=== PATIENT | male | born 1960 | race Caucasian/White ===

== ENCOUNTER 2016-11-29 21:09 | Emergency (ER) | payer OTHER ==
[~2016-11-29] VITALS: Ht 170.2 cm; Wt 81.6 kg
[~2016-11-29 21:09] MED LIST: ACET500C4 PO; LORA10TA7 PO; OMEP20TA20 PO
[2016-11-29] MEDS ORDERED: MAG HYDROX/AL HYDROX/SIMETH 30 ML LIQUID UDC PO ONE (21:45)
[2016-11-29] MEDS ORDERED: DICYCLOMINE HCL 10 MG/5 ML UDC LIQ PO ONE (21:45)
[2016-11-29] MEDS ORDERED: IV NORMAL SALINE 1000 ML BAG IV ONE (21:45)
[2016-11-29] MEDS ORDERED: NITROGLYCERIN 0.4 MG/TAB BOTTLE SL ONE ×2 (21:45→22:01)
[2016-11-29] MEDS ORDERED: PANTOPRAZOLE SODIUM 40 MG VIAL IV ONE (21:45)
[2016-11-29] MEDS ORDERED: LIDOCAINE VISCUS 2% 15 ML UDC MM ONE (21:45)
[2016-11-29] MEDS ORDERED: METOCLOPRAMIDE HCL 10 MG/2 ML VIAL IV ONE (21:45)
[2016-11-29] MEDS ORDERED: HYDROMORPHONE 1 MG/1 ML DISP.SYRIN IV ONE (21:45)
[2016-11-29 21:58] LABS: BASOPHILS # (AUTO) 0.1 K/uL (0.0-8.0); BASOPHILS % (AUTO) 0.6 % (0.0-2.0); EOSINOPHILS # (AUTO) 0.1 K/uL (0.0-0.7); EOSINOPHILS % (AUTO) 0.5 % (0.0-7.0); HEMATOCRIT 46.7 % (40-50); HEMOGLOBIN 15.5 G/DL (14.0-18.0); LYMPHOCYTES # (AUTO) 1.4 K/UL (0.8-4.8); LYMPHOCYTES % (AUTO) 12.8 % (20.5-51.5); MEAN CORPUSCULAR HEMOGLOBIN 28.9 UUG (27.0-31.0); MEAN CORPUSCULAR HGB CONC 33 g/dL (32.0-37.0); MEAN CORPUSCULAR VOLUME 86.8 FL (82.0-92.0); MONOCYTES # (AUTO) 0.4 K/UL (0.1-1.30); MONOCYTES % (AUTO) 3.6 % (0.0-11.0); NEUTROPHILS # (AUTO) 9.2 K/UL (1.8-8.9); NEUTROPHILS % (AUTO) 82.5 % (38.5-71.5); PLATELET COUNT (AUTO) 254 K/UL (150-450); RED BLOOD CELL COUNT(AUTO) 5.38 MIL/UL (4.7-6.1); WHITE BLOOD COUNT (AUTO) 11.2 K/UL (4.0-11.2)
[2016-11-29] MEDS ORDERED: METOCLOPRAMIDE HCL 10 MG/2 ML VIAL ONE (21:59)
[2016-11-29] MEDS ORDERED: PANTOPRAZOLE SODIUM 40 MG VIAL ONE (22:00)
[2016-11-29] MEDS ORDERED: HYDROMORPHONE 1 MG/1 ML DISP.SYRIN ONE (22:00)
[2016-11-29] MEDS ORDERED: MAG HYDROX/AL HYDROX/SIMETH 30 ML LIQUID UDC ONE (22:00)
[2016-11-29] MEDS ORDERED: DICYCLOMINE HCL 10 MG/5 ML UDC LIQ ONE (22:01)
[2016-11-29 22:02] LABS: POTASSIUM 3.4 mmol/L (3.5-5.1)
[2016-11-29] MEDS ORDERED: LIDOCAINE VISCUS 2% 15 ML UDC ONE (22:02)
[2016-11-29 22:08] LABS: BILIRUBIN,DIRECT 0.2 mg/dL (0.0-0.2); BILIRUBIN,TOTAL 1.3 mg/dL (0.2-1.0); TOTAL PROTEIN, SERUM 8.8 g/dL (6.4-8.2)
[2016-11-29 23:44] VITALS: BP 128/75
== END 2016-11-29 23:45 | disposition home or self-care (01) ==
LOC: ER 21:12
DX: K22.4 Dyskinesia of esophagus (principal); R10.13 Epigastric pain; K21.9 Gastro-esophageal reflux disease without esophagitis; F10.20 Alcohol dependence, uncomplicated
CPT/HCPCS: 36415; 71010; 74176; 76705; 80048; 80076; 83690; 85025; 85730; 93005; 96361; 96374; 96375; 99285; A4663; C9113; J1170; J2765; J7030

== ENCOUNTER 2018-11-19 16:06 | Emergency (ER) | payer MEDICAID, OTHER ==
[~2018-11-19] VITALS: Ht 170.2 cm; Wt 59.4 kg
[2018-11-19] MEDS ORDERED: MORPHINE SULFATE 2 MG/1 ML DISP.SYRIN IV ONE (16:30)
[2018-11-19] MEDS ORDERED: ONDANSETRON 4 MG/2 ML VIAL IV ONE (16:30)
[2018-11-19] MEDS ORDERED: IV NORMAL SALINE 1000 ML BAG IV ONE (16:30)
[2018-11-19 16:59] LABS: BASOPHILS % (AUTO) 1.1 % (0.0-2.0); EOSINOPHILS % (AUTO) 1.2 % (0.0-7.0); HEMATOCRIT 27.9 % (36.7-47.1); HEMOGLOBIN 9.2 g/dL (12.5-16.3); LYMPHOCYTES # (AUTO) 0.3 K/uL (20.0-40.0); LYMPHOCYTES % (AUTO) 34.2 % (20.5-51.5); MEAN CORPUSCULAR HEMOGLOBIN 27.1 uug (23.8-33.4); MEAN CORPUSCULAR HGB CONC 33 g/dL (32.5-36.3); MEAN CORPUSCULAR VOLUME 82.1 fL (73.0-96.2); MONOCYTES # (AUTO) 0.4 K/uL (2.0-10.0); MONOCYTES % (AUTO) 42.8 % (0.0-11.0); NEUTROPHILS # (AUTO) 0.2 K/uL (1.8-8.9); NEUTROPHILS % (AUTO) 20.7 % (38.5-71.5); PLATELET COUNT (AUTO) 149 K/uL (152-348); RED BLOOD CELL COUNT(AUTO) 3.39 MIL/uL (4.06-5.63)
[2018-11-19] MEDS ORDERED: ONDANSETRON 4 MG/2 ML VIAL ONE (16:59)
[2018-11-19] MEDS ORDERED: MORPHINE SULFATE 4 MG/1 ML DISP.SYRIN ONE (16:59)
[2018-11-19] MEDS ORDERED: PANT40TA2 PO (17:00)
[2018-11-19 17:07] LABS: CREATININE 1.3 mg/dL (0.6-1.3); POTASSIUM 5.2 mmol/L (3.5-5.1)
[2018-11-19 17:08] LABS: WHITE BLOOD COUNT (AUTO) 0.9 K/uL (3.6-10.2)
[2018-11-19 17:12] LABS: BILIRUBIN,DIRECT 0.6 mg/dL (0.0-0.2); TOTAL PROTEIN, SERUM 8.5 g/dL (6.4-8.2)
[2018-11-19 17:36] LABS: BAND % (MANUAL) 11 % (0-10); EOSINOPHILS % (MANUAL) 1 % (0-8); METAMYELOCYTES % 1 % (0-1); MONOCYTES % (MANUAL) 36 % (2-10); NEUTROPHILS % (MANUAL) 8 % (42-75)
[2018-11-19 17:38] LABS: LYMPHOCYTES % (MANUAL) 43 % (20-40)
[2018-11-19] MEDS ORDERED: FAMOTIDINE. 20 MG/2 ML VIAL IV ONE ×2 (18:30→18:35)
--- NOTE | 2018-11-19 18:52 | NUR ---
Patient discharged to home in stable conditon. Written and verbal after care instructions given. Patient verbalizes understanding of instructions and follow up. all belongings with patient, ambulatory. denies pain. not in any form of distress.
[2018-11-19 18:53] VITALS: BP 128/75
== END 2018-11-19 18:55 | disposition home or self-care (01) ==
LOC: ER 16:08
DX: R10.13 Epigastric pain (principal); R11.2 Nausea with vomiting, unspecified; K21.9 Gastro-esophageal reflux disease without esophagitis; Z79.899 Other long term (current) drug therapy
CPT/HCPCS: 36415; 74176; 80048; 80076; 83690; 85025; 96361; 96374; 96375; 99284; J2270; J2405; J3490; A4663

== ENCOUNTER 2018-11-28 18:25 | Emergency (ER) | payer MEDICAID ==
[~2018-11-28] VITALS: Ht 170.2 cm; Wt 63.5 kg
[~2018-11-28 18:25] MED LIST changes: +PANT40TA2 PO
[2018-11-28] MEDS ORDERED: ONDANSETRON 4 MG/2 ML VIAL IV ONE (19:00)
[2018-11-28] MEDS ORDERED: PANTOPRAZOLE SODIUM 40 MG VIAL IV ONE (19:00)
[2018-11-28] MEDS ORDERED: IV NORMAL SALINE 1000 ML BAG IV ONE (19:00)
[2018-11-28 19:17] LABS: BASOPHILS % (AUTO) 0.2 % (0.0-2.0); EOSINOPHILS % (AUTO) 0.1 % (0.0-7.0); HEMATOCRIT 26.9 % (36.7-47.1); HEMOGLOBIN 9.2 g/dL (12.5-16.3); LYMPHOCYTES # (AUTO) 1.7 K/uL (20.0-40.0); LYMPHOCYTES % (AUTO) 15.5 % (20.5-51.5); MEAN CORPUSCULAR HGB CONC 34 g/dL (32.5-36.3); MEAN CORPUSCULAR VOLUME 81.9 fL (73.0-96.2); MONOCYTES # (AUTO) 1.3 K/uL (2.0-10.0); MONOCYTES % (AUTO) 12.2 % (0.0-11.0); NEUTROPHILS # (AUTO) 7.9 K/uL (1.8-8.9); PLATELET COUNT (AUTO) 558 K/uL (152-348); RED BLOOD CELL COUNT(AUTO) 3.29 MIL/uL (4.06-5.63)
[2018-11-28 19:22] LABS: CREATININE 1.3 mg/dL (0.6-1.3); POTASSIUM 3.8 mmol/L (3.5-5.1)
[2018-11-28 19:29] LABS: BILIRUBIN,DIRECT 0.3 mg/dL (0.0-0.2); BILIRUBIN,TOTAL 0.6 mg/dL (0.2-1.0); TOTAL PROTEIN, SERUM 8.2 g/dL (6.4-8.2)
[2018-11-28] MEDS ORDERED: MORPHINE SULFATE 4 MG/1 ML DISP.SYRIN IV ONE (19:30)
--- NOTE | 2018-11-28 19:45 | NUR ---
found pt in bed stated he came in for n/v can't eat chronic back pain takes norco pt stated he has cancer overall generalized weakness and frail at his side stated this is normal for him comfort and safety maintained
[2018-11-28] MEDS ORDERED: MORPHINE SULFATE 4 MG/1 ML DISP.SYRIN ONE (19:46)
[2018-11-28] MEDS ORDERED: ONDANSETRON 4 MG/2 ML VIAL ONE (19:46)
[2018-11-28] MEDS ORDERED: PANTOPRAZOLE SODIUM 40 MG VIAL ONE (19:46)
[2018-11-28] MEDS ORDERED: HYDROMORPHONE 1 MG/1 ML DISP.SYRIN IV ONE (20:00)
[2018-11-28] MEDS ORDERED: HYDROMORPHONE 1 MG/1 ML DISP.SYRIN ONE (20:09)
[2018-11-28 20:14] LABS: BAND % (MANUAL) 4 % (0-10); LYMPHOCYTES % (MANUAL) 13 % (20-40); MONOCYTES % (MANUAL) 10 % (2-10); NEUTROPHILS % (MANUAL) 68 % (42-75)
[2018-11-28 20:15] LABS: METAMYELOCYTES % 4 % (0-1); MYELOCYTES % 1 % (0-0)
--- NOTE | 2018-11-28 20:15 | NUR ---
pt wwas medicated with zofran, protonix , morphine and normal saline denies allergies med teaching given comfort and safety maintained with some effect
--- NOTE | 2018-11-28 20:25 | NUR ---
was med time one with dilaudid for pain denies allergy med teaching given with good effect
--- NOTE | 2018-11-28 20:40 | NUR ---
pt was discharge to home with his hl removed site wnl discharge teaching and prescription teaching given also pt denies pain/discomfort at this time , enc pt not to drive hime
[2018-11-28 21:03] VITALS: BP 137/76
== END 2018-11-28 20:45 | disposition home or self-care (01) ==
LOC: ER 18:25
DX: D01.7 Carcinoma in situ of other specified digestive organs (principal); D64.9 Anemia, unspecified; Z79.899 Other long term (current) drug therapy
CPT/HCPCS: 36415; 80048; 80076; 83690; 84484; 85025; 93005; 96374; 96375; 99284; C9113; J1170; J2270; J2405; 70030-TC; A4663; J7030

== ENCOUNTER 2018-12-06 20:24 | Emergency (ER) | payer MEDICAID ==
[~2018-12-06] VITALS: Ht 170.2 cm; Wt 61.2 kg
[2018-12-06] MEDS ORDERED: [UNRECOGNIZED DRUG - OTHER] (20:45)
[2018-12-06] MEDS ORDERED: LIDOCAINE 2% (20:45)
[2018-12-06] MEDS ORDERED: [UNRECOGNIZED DRUG - OTHER] (20:45)
--- NOTE | 2018-12-06 21:02 | NUR ---
Patient states nausea is gone. Requesting for more pain medication for abdominal pain raditing to back 11/09.
[2018-12-06] MEDS ORDERED: ONDANSETRON 4 MG/2 ML VIAL ONE (21:28)
[2018-12-06] MEDS ORDERED: HYDROMORPHONE 1 MG/1 ML DISP.SYRIN ONE ×2 (21:28→22:11)
[2018-12-06] MEDS ORDERED: ONDANSETRON 4 MG/2 ML VIAL IV ONE (21:30)
[2018-12-06] MEDS ORDERED: IV NORMAL SALINE 1000 ML BAG IV ONE (21:30)
[2018-12-06] MEDS ORDERED: HYDROMORPHONE 1 MG/1 ML DISP.SYRIN IV ONE ×2 (21:30→22:15)
[2018-12-06 21:38] LABS: BASOPHILS # (AUTO) 0.1 K/uL (0.0-8.0); BASOPHILS % (AUTO) 0.5 % (0.0-2.0); EOSINOPHILS % (AUTO) 0.1 % (0.0-7.0); HEMATOCRIT 26.3 % (36.7-47.1); HEMOGLOBIN 8.6 g/dL (12.5-16.3); LYMPHOCYTES # (AUTO) 1.2 K/uL (20.0-40.0); LYMPHOCYTES % (AUTO) 8.9 % (20.5-51.5); MEAN CORPUSCULAR HEMOGLOBIN 26.8 uug (23.8-33.4); MEAN CORPUSCULAR HGB CONC 33 g/dL (32.5-36.3); MEAN CORPUSCULAR VOLUME 82.1 fL (73.0-96.2); MONOCYTES # (AUTO) 0.9 K/uL (2.0-10.0); MONOCYTES % (AUTO) 6.7 % (0.0-11.0); NEUTROPHILS # (AUTO) 11.4 K/uL (1.8-8.9); NEUTROPHILS % (AUTO) 83.8 % (38.5-71.5); PLATELET COUNT (AUTO) 546 K/uL (152-348); RED BLOOD CELL COUNT(AUTO) 3.21 MIL/uL (4.06-5.63); WHITE BLOOD COUNT (AUTO) 13.6 K/uL (3.6-10.2)
[2018-12-06 21:59] LABS: POTASSIUM 3.7 mmol/L (3.5-5.1)
[2018-12-06 22:02] LABS: CREATININE 1.4 mg/dL (0.6-1.3)
[2018-12-06 22:12] LABS: BILIRUBIN,DIRECT 0.3 mg/dL (0.0-0.2); BILIRUBIN,TOTAL 0.8 mg/dL (0.2-1.0); TOTAL PROTEIN, SERUM 8.8 g/dL (6.4-8.2)
[2018-12-06] MEDS ORDERED: SWABABLE VALVE TRANSFER SET EA MC ONE (22:37)
[2018-12-06] MEDS ORDERED: IOHEXOL 300MG/ML 100 ML INFUS..BTL ONE (22:38)
[2018-12-06] MEDS ORDERED: IV NORMAL SALINE 250 ML IV ONE (22:38)
--- NOTE | 2018-12-06 22:45 | NUR ---
PATIENT OUT OF UNIT FOR CT SCAN VIA GURNY
--- NOTE | 2018-12-06 22:52 | NUR ---
PATIENT BACK FROM CT SCAN WITH NO DISTRESS NOTED
--- NOTE | 2018-12-06 23:42 | NUR ---
IV removed. Catheter intact and site benign. Pressure and 4x4 gauze applied to site. No bleeding noted.
[2018-12-06 23:43] VITALS: BP 148/84
--- NOTE | 2018-12-06 23:47 | NUR ---
Patient discharged to home in stable conditon WITH TAKING PATIENT HOME. Written and verbal after care instructions given. Patient verbalizes understanding of instructions. WALKED OUT OF ER WITH NO DISTRESS NOTED
== END 2018-12-06 23:49 | disposition home or self-care (01) ==
LOC: ER 20:24
DX: D01.7 Carcinoma in situ of other specified digestive organs (principal); Z79.899 Other long term (current) drug therapy
CPT/HCPCS: 36415; 71045; 74177; 80048; 80076; 83605; 83690; 84484; 85025; 85730; 87040 ×2; 93005; 96361; 96374; 96375; 96376; 99284; J1170 ×2; J2405; Q9967; 70030-TC; A4663; J7030; J7050